=== PATIENT | male | born 1965 | race Caucasian/White ===

== ENCOUNTER → 2016-03-15 | Outpatient (REF) ==
[~2016-03-15] MED LIST: ADALAT CC30 MG PO; ASPIRIN 32325 MG/TAB PO; ATENOLOL50 MG PO; ATORVASTATIN; CIPRO 500MG TA500 MG PO; COREG 25MG25 MG/TAB PO; COZAAR 50MG50 MG/TAB PO; DILAUDID 4MG TAB4 MG PO; FLOMAX 0.40.4 MG/CAP PO; HCTZ 25MG TAB25 MG PO; LEVAQUIN 5500 MG/101 IV; LORTAB 5/500 501 TAB PO; MEXITIL 150MG150 MG PO; MUCINEX 60600 MG/TA1 PO; NORCO 325 MG-7.1 TAB PO; PERCOCET 5/321 UDTAB PO; PROAIR HFA0.09 MG/AC IH; SINGULAIR 110 MG/TAB PO; TAMBOCOR 1100 MG/TAB PO; bp med
== END ==
LOC: ZLAB.WCH 10:10
DX: Z01.89 Encounter for other specified special examinations (principal)

== ENCOUNTER → 2016-03-17 | Outpatient (REF) | LOC: COL.CARD 13:09 | DX: R00.0 Tachycardia, unspecified (principal); R00.1 Bradycardia, unspecified; R06.09 Other forms of dyspnea ==

== ENCOUNTER → 2016-03-28 | Outpatient (REF) | LOC: COL.CARD 14:15 | DX: R00.1 Bradycardia, unspecified (principal); R00.0 Tachycardia, unspecified; R06.02 Shortness of breath; R42 Dizziness and giddiness; R94.39 Abnormal result of other cardiovascular function study ==

== ENCOUNTER → 2016-03-31 | Outpatient (CLI) | payer BC | LOC: COL.VAS 13:05 | DX: I07.1 Rheumatic tricuspid insufficiency (principal); R94.39 Abnormal result of other cardiovascular function study; I47.2 Ventricular tachycardia; I49.3 Ventricular premature depolarization; R06.09 Other forms of dyspnea; G47.33 Obstructive sleep apnea (adult) (pediatric) ==

== ENCOUNTER 2016-04-07 07:24 | Day surgery (SDC) | payer BC ==
[2016-04-07] VITALS (10 sets, daily range): BP systolic 109–129; BP diastolic 59–76; PULSE 51–84
[~2016-04-07] VITALS: Ht 180.3 cm; Wt 144.0 kg
[~2016-04-07 07:24] MED LIST changes: -ASPIRIN 32325 MG/TAB PO; -COZAAR 50MG50 MG/TAB PO; -MEXITIL 150MG150 MG PO; -MUCINEX 60600 MG/TA1 PO; -SINGULAIR 110 MG/TAB PO; -TAMBOCOR 1100 MG/TAB PO
[2016-04-07 08:35] LABS: HEMATOCRIT 41.9 % (42.0-52.0); HEMOGLOBIN 14.6 g/dl (13.5-18.0); MEAN CELL VOLUME 92 fl (80.0-100.0); MEAN CORPUSCULAR HEMOGLOBIN 32 pg (27.0-31.0); MEAN CORPUSCULAR HGB CONC 35 g/dl (33.0-37.0); MEAN PLATELET VOLUME 11.1 fl (7.4-10.4); PLATELET COUNT 166 K/mm3 (130-400); RED BLOOD COUNT 4.58 M/mm3 (4.20-5.60); REDCELL DISTRIBUTION WIDTH-CV 12.5 % (11.5-14.5); WHITE BLOOD COUNT 6.3 K/mm3 (4.8-10.8)
[2016-04-07 08:37] LABS: INR 1.1 (0.8-3.0); PROTHROMBIN TIME 11.8 SECONDS (9.7-12.8)
[2016-04-07] MEDS ORDERED: SINGULAIR 110 MG/TAB PO (08:37)
[2016-04-07] MEDS ORDERED: TAMBOCOR 1100 MG/TAB PO (08:38)
[2016-04-07] MEDS ORDERED: MUCINEX 60600 MG/TA1 PO (08:40)
[2016-04-07] MEDS ORDERED: ASPIRIN 32325 MG/TAB PO (08:40)
[2016-04-07 08:41] LABS: CALCIUM 9.5 mg/dL (8.4-10.2); CREATININE, serum 0.9 mg/dL (0.66-1.25); POTASSIUM 3.9 mmol/L (3.4-5.0)
[2016-04-07] MEDS ORDERED: MEXITIL 150MG150 MG PO (12:01)
[2016-04-07] MEDS ORDERED: COZAAR 50MG50 MG/TAB PO (12:02)
== END 2016-04-07 14:29 | disposition home or self-care (01) ==
LOC: EUO 07:24 → COL.RAD 07:30 → EUO 14:29
PROVIDERS: Internal Medicine Cardiovascular Disease
DX: R55 Syncope and collapse (principal); I49.3 Ventricular premature depolarization; R00.0 Tachycardia, unspecified; R00.8 Other abnormalities of heart beat; I10 Essential (primary) hypertension; R06.00 Dyspnea, unspecified; R07.9 Chest pain, unspecified; G47.33 Obstructive sleep apnea (adult) (pediatric); Z79.899 Other long term (current) drug therapy; Z87.891 Personal history of nicotine dependence
CPT/HCPCS: C1769; C1894; J1644; J2250; J3010; Q9967

== ENCOUNTER → 2016-04-21 | Outpatient (REF) ==
[~2016-04-21] MED LIST changes: +ASPIRIN 32325 MG/TAB PO; +COZAAR 50MG50 MG/TAB PO; +MEXITIL 150MG150 MG PO; +MUCINEX 60600 MG/TA1 PO; +SINGULAIR 110 MG/TAB PO; +TAMBOCOR 1100 MG/TAB PO
[2016-04-21 16:15] LABS: PSA-TOTAL 0.66 ng/mL (0-4)
== END ==
LOC: ZLAB.WCH 15:10
PROVIDERS: Internal Medicine
DX: Z01.89 Encounter for other specified special examinations (principal)
CPT/HCPCS: G0103

== ENCOUNTER → 2016-05-13 | Outpatient (REF) | LOC: ZLAB.WCH 11:37 | DX: Z01.89 Encounter for other specified special examinations (principal) ==

== ENCOUNTER → 2016-06-06 | Outpatient (REF) | LOC: ZLAB.WCH 15:00 | DX: Z02.89 Encounter for other administrative examinations (principal) ==

== ENCOUNTER → 2016-06-06 | Outpatient (REF) | LOC: ZLAB.WCH 20:08 | DX: Z01.89 Encounter for other specified special examinations (principal) ==

== ENCOUNTER → 2016-06-07 | Outpatient (REF) | LOC: ZLAB.WCH 09:53 | DX: Z01.89 Encounter for other specified special examinations (principal) ==

== ENCOUNTER → 2017-04-20 | Outpatient (REF) ==
[2017-04-20 19:02] LABS: PSA-TOTAL 0.48 ng/mL (0-4)
[2017-04-20 19:16] LABS: THYROID STIMULATING HORMONE 4.34 uIU/mL (0.465-4.680)
== END ==
LOC: ZLAB.WCH 17:57
PROVIDERS: Internal Medicine
DX: Z12.5 Encounter for screening for malignant neoplasm of prostate (principal)
CPT/HCPCS: G0103

== ENCOUNTER → 2017-05-08 | Outpatient (REF) | LOC: ZLAB.WCH 16:02 | DX: Z01.89 Encounter for other specified special examinations (principal) ==

== ENCOUNTER → 2017-06-06 | Outpatient (REF) | LOC: ZLAB.WCH 17:54 | DX: Z01.89 Encounter for other specified special examinations (principal) ==

== ENCOUNTER → 2017-06-23 | Outpatient (CLI) | payer BC ==
[~2017-06-23] VITALS: Ht 180.3 cm; Wt 160.0 kg
[~2017-06-23] MED LIST changes: +COLCRYS0.6 MG PO; +FLONASEALLERGY NS; +K-DUR20 MEQ PO; +LASIX 20MG TABL20 MG PO; +TOPROL XL 25MG25 MG PO
[2017-06-23 11:04] VITALS: BP 149/74; PULSE 56
[2017-06-23 12:15] VITALS: BP 155/73; PULSE 102
[2017-06-23 12:16] VITALS: BP 154/76; PULSE 99
== END ==
LOC: COL.CARD 10:33
DX: I49.3 Ventricular premature depolarization (principal); I49.5 Sick sinus syndrome; I10 Essential (primary) hypertension; R73.02 Impaired glucose tolerance (oral)
CPT/HCPCS: A9502; J2785

== ENCOUNTER → 2017-08-29 | Outpatient (REF) | LOC: ZLAB.WCH 18:39 | DX: Z01.89 Encounter for other specified special examinations (principal) ==

== ENCOUNTER → 2017-09-11 | Outpatient (REF) | LOC: COL.CARD 15:43 | DX: Z01.818 Encounter for other preprocedural examination (principal) ==

== ENCOUNTER → 2017-11-08 | Outpatient (CLI) | payer BC | LOC: COL.VAS 07:09 | DX: M79.81 Nontraumatic hematoma of soft tissue (principal); L90.5 Scar conditions and fibrosis of skin; M79.651 Pain in right thigh ==

== ENCOUNTER → 2018-11-08 | Outpatient (CLI) | payer BC | LOC: COL.RAD 10-31 09:45 | DX: M25.511 Pain in right shoulder (principal) | CPT/HCPCS: A9585; Q9967 ==

== ENCOUNTER → 2021-06-17 | Outpatient (CLI) | payer BC | LOC: COL.RAD 13:15 | DX: M47.22 Other spondylosis with radiculopathy, cervical region (principal); M48.02 Spinal stenosis, cervical region ==